=== PATIENT | male | born 1990 | race Caucasian/White ===

== ENCOUNTER → 2020-03-19 08:35 | Outpatient (BNVA) | payer OTHER, SELFPAY | PROVIDERS: Visit Provider Psychiatry & Neurology Psychiatry | DX: Z03.89 Encounter for observation for other suspected diseases and conditions ruled out (principal); F84.5 Asperger's syndrome; F19.90 Other psychoactive substance use, unspecified, uncomplicated; F39 Unspecified mood [affective] disorder | CPT/HCPCS: 80048; 80061; 83036; 85025 ==

== ENCOUNTER → 2021-09-09 12:19 | Outpatient (BNVA) | payer OTHER, SELFPAY | PROVIDERS: Visit Provider Nurse Practitioner Psychiatric/Mental Health | DX: Z03.89 Encounter for observation for other suspected diseases and conditions ruled out (principal) | CPT/HCPCS: 80053; 80307; 84439; 84443 ==